=== PATIENT | male | born 1960 | race Caucasian/White ===

== ENCOUNTER → 2017-01-16 | Outpatient (CLI) | payer OTHER | LOC: FIMAGING 09:50 | PROVIDERS: ATTEND Internal Medicine Hematology & Oncology | DX: C79.02 Secondary malignant neoplasm of left kidney and renal pelvis (principal) | CPT/HCPCS: 78306; A9503 ==

== ENCOUNTER 2017-03-02 09:47 | Day surgery (SDC) | payer OTHER ==
[2017-03-02] MEDS ORDERED: MIDAZOLAM 2 MG/2 ML VIAL IVP PRN (09:59)
[2017-03-02] MEDS ORDERED: NALOXONE HCL 0.4 MG/ML INJ IVP PRN (09:59)
[2017-03-02] MEDS ORDERED: fentaNYL 100 MCG/2 ML INJ IVP PRN (09:59)
[2017-03-02] MEDS ORDERED: FLUMAZENIL 0.5 MG/5 ML MDV IVP PRN (09:59)
[2017-03-02] MEDS ORDERED: NS 1,000 ML IV SCH (10:00)
[2017-03-02 10:50] VITALS: PULSE 71
[2017-03-02 11:09] LABS: INR 0.96 (0.83-1.16)
--- NOTE | 2017-03-02 11:12 | PDGENHP ---
History & Physical Chief Complaint: Mass in right lung History of Present Illness: Metastasis from kidney CA to right middle lobe. Asymptomatic. Pertinent Past, Social, Family History: Left nephrectomy for cancer in 2013. Smoked for 25 years; nonsmoker now. Cardiorespiratory Assessment: Heart: RRR, 64 bpm, no murmur. Lungs: clear to auscultation. Breath sounds generally diminished.
--- NOTE | 2017-03-02 11:16 | PDPROPOC ---
Sedation Plan of Care Sedation Plan of Care: vital signs stable, mental status noted, patient educated of risks, benefits, alternatives, patient can tolerate sedation ASA Classification: ASA 3 Planned drugs: fentanyl, midazolam Mallampati Score: Class 2 Mallampati Reference Image: Patient passed 3-3-2 rule?: Yes
[2017-03-02] MEDS ORDERED: ONDANSETRON 4 MG/2 ML VIAL IVP PRN (12:50)
--- NOTE | 2017-03-02 12:50 | PDRADPN ---
Radiology Procedure Note Date of Procedure: 03/02/17 Radiologist: Demetris Bloom Anesthesia: IV Sedation Pre-op Diagnosis: Metastatic renal cell CA Post-op Diagnosis: same Indication: Cyberknife requirement Procedure: CT guided placement of right pulmonary fiducial markers X 3 Finding(s): Deployed. Small pneumothorax on CT. Follow-up CXRs are pending. Inf/Abcess present in the surg proc area at time of surgery?: No EBL: Minimal Complications: CXR pending. Specimen(s): 0
[2017-03-02] MEDS ORDERED: LIDOCAINE 1% 300 MG/30 ML SDV ONE (13:11)
[2017-03-02 13:48] VITALS: RESP 18
[2017-03-02 16:03] VITALS: BP 113/75; TEMP 97.9; O2SAT 96
== END 2017-03-02 16:33 | disposition home or self-care (01) ==
LOC: FIMAGING 09:47
PROVIDERS: ATTEND Internal Medicine Hematology & Oncology
PROC: 0BH Respiratory System, Insertion (ICD-10-PCS; principal; 2017-03-02 13:15)
DX: C78.02 Secondary malignant neoplasm of left lung (principal); C64.2 Malignant neoplasm of left kidney, except renal pelvis; J95.811 Postprocedural pneumothorax; Z87.891 Personal history of nicotine dependence; Z96.641 Presence of right artificial hip joint; Z96.652 Presence of left artificial knee joint
CPT/HCPCS: J2250; J2310; J3010